=== PATIENT | female | born 1960 | race Caucasian/White ===

== ENCOUNTER 2021-06-09 01:29 | Inpatient (IN) | payer MEDICARE, SELFPAY ==
[2021-06-09] MEDS ORDERED: Calcium Carbonate 500 MG ChewTAB PO PRN (01:47)
[2021-06-09] MEDS ORDERED: Dextrose 5% in Water 1,000 ML IV PRN (01:47)
[2021-06-09] MEDS ORDERED: Acetaminophen 325 MG TAB PO PRN (01:47)
[2021-06-09] MEDS ORDERED: Dextrose 50% Abboject 50 ML SYRINGE SLOW IVP PRN (01:47)
[2021-06-09] MEDS ORDERED: Senokot S 8.6-50 MG TAB PO PRN (01:47)
[2021-06-09] MEDS ORDERED: HumaLOG 300 UNITS/3 ML VIAL SC PRN (01:47)
[2021-06-09] MEDS ORDERED: Ondansetron PF 4 MG/2 ML Vial IVP PRN (01:47)
[2021-06-09] MEDS ORDERED: Potassium Chloride 20 MEQ TAB PO SCH (02:00)
[2021-06-09] MEDS ORDERED: Ventolin HFA Inhaler 60 PUFF INHALER INH PRN (02:09)
[2021-06-09] MEDS ORDERED: Sodium Bicarb 50 MEQ/50 ML VIAL IVP SCH (02:30)
[2021-06-09 02:41] LABS: Actual Bicarbonate (HCO3v) 41 mEq/L (22-28); Base Excess 16.6 mEq/L (-2.0 to +3.0); Calcium, Ionized (venous) 0.99 mmol/L (1.16-1.32); Chloride (VBG) 93 mmol/L (98-106); Hemoglobin (Hb) 11.5 g/dL (11.7-16.0); Potassium (VBG) 2.88 mmol/L (3.70-5.30); Puncture Site Other Site; Sodium 135.6 mmol/L (133-146); pH (venous) 7.57 (7.32-7.43)
[2021-06-09 02:53] LABS: Hemoglobin 10.8 g/dL (12.0-15.5); Mean Corpuscular HGB CONC 31.7 g/dL (32.0-36.0); Mean Corpuscular Hemoglobin 25.2 pg (27.0-33.0); Mean Corpuscular Volume 79.7 fl (81.6-98.3); Platelet Count 180 10x3/uL (150-450); RBC Distribution Width 18.9 % (11.5-14.5); Red Blood Cell (RBC) Count 4.28 10x6/uL (3.90-5.03); White Blood Cell (WBC) Count 3.8 10x3/uL (3.5-10.5)
[2021-06-09 02:54] VITALS: BMI 39.6
[2021-06-09] MEDS ORDERED: Sodium Bicarbonate 150 MEQ in Dextrose 5% in Water 1,000 ML IV SCH (03:00)
[2021-06-09] MEDS ORDERED: Sodium Chloride 0.9% 1,000 ML IV SCH (03:15)
[2021-06-09 03:38] LABS: Anisocytosis SLIGHT = 6-15 cells (100X) (0-5/hpf); Band 12 % (5-11); Lymphocytes 18 % (21-51); Monocytes 14 % (0-10); Neutrophil 56 % (42-75)
[2021-06-09 03:39] LABS: Large Platelets SLIGHT; Microcytosis SLIGHT = 6-15 cells (100X) (0-5/hpf); Platelet Morphology Comment Appears Adequate
[2021-06-09 03:40] LABS: ALT (SGPT) 24 U/L (8-55); AST (SGOT) 36 U/L (5-34); Albumin 2.9 g/dL (3.4-4.8); Alkaline Phosphatase 96 U/L (40-110); Anion Gap 13 mmol/L (10-20); BUN (Urea Nitrogen) Less than 4 mg/dL (9.8-20.1); Bilirubin, Total 0.4 mg/dL (0.2-1.2); CRP (Inflammatory) 2.85 mg/dL (= or < 0.5); Calc. Creatinine Clearance 129 mL/min (70-130); Calcium 8.4 mg/dL (7.8-10.44); Carbon Dioxide 36 mmol/L (23-31); Chloride 93 mmol/L (98-107); Glucose 117 mg/dL (80-115); Magnesium 1.7 mg/dL (1.6-2.6); Protein, Total 5.9 g/dL (5.8-8.1); Sodium 139 mmol/L (136-145)
[2021-06-09 03:40] LABS: MDiff Complete? YES; Manual Diff?? YES
[2021-06-09 03:47] LABS: Actual Bicarbonate (HCO3v) 35 mEq/L (22-28); Base Excess 11.7 mEq/L (-2.0 to +3.0); Chloride (VBG) 93 mmol/L (98-106); Hemoglobin (Hb) 11.5 g/dL (11.7-16.0); Potassium (VBG) 2.53 mmol/L (3.70-5.30); Puncture Site Other Site; RapidComm Collect By Lab; Sodium 134.6 mmol/L (133-146); pH (venous) 7.54 (7.32-7.43)
[2021-06-09 03:53] LABS: Potassium 2.6 mmol/L (3.5-5.1)
[2021-06-09] MEDS: Potassium Chloride 20 MEQ TAB PO SCH ×2 (04:04→05:18)
[2021-06-09] MEDS: Potassium Chloride 10 MEQ in Premix Bag 1 BAG IVPB SCH ×2 (04:04→05:18)
[2021-06-09] MEDS: Cholecalciferol 1,000 UNITS (25 MCG) TAB PO SCH (08:00)
[2021-06-09] MEDS: Ascorbic Acid 500 mg Chewable Tablet PO SCH (08:00)
[2021-06-09] MEDS: metFORMIN 500 MG TAB PO SCH ×2 (08:00→18:10)
[2021-06-09] MEDS: Enoxaparin Sodium 40 MG/0.4 ML SYRINGE SC SCH (08:00)
[2021-06-09] MEDS: Aspirin 81 mg Enteric Coated Tablet PO SCH (08:00)
[2021-06-09] MEDS: Zinc Gluconate 50 MG TAB PO SCH (08:00)
[2021-06-09 08:21] LABS: Actual Bicarbonate (HCO3v) 32 mEq/L (22-28); Base Excess 6.5 mEq/L (-2.0 to +3.0); Calcium, Ionized (venous) 1.06 mmol/L (1.16-1.32); Chloride (VBG) 98 mmol/L (98-106); Hemoglobin (Hb) 12.1 g/dL (11.7-16.0); Potassium (VBG) 3.54 mmol/L (3.70-5.30); Puncture Site Other Site; RapidComm Collect By LAB; Sodium 137.8 mmol/L (133-146); pH (venous) 7.44 (7.32-7.43)
[2021-06-09 08:26] LABS: Anion Gap 13 mmol/L (10-20); BUN (Urea Nitrogen) Less than 4 mg/dL (9.8-20.1); Calc. Creatinine Clearance 129 mL/min (70-130); Calcium 8.6 mg/dL (7.8-10.44); Carbon Dioxide 32 mmol/L (23-31); Chloride 99 mmol/L (98-107); Glucose 113 mg/dL (80-115); Potassium 3.7 mmol/L (3.5-5.1); Sodium 140 mmol/L (136-145)
[2021-06-09] MEDS ORDERED: UBIQUINOL 200 MG PO SCH (09:00)
[2021-06-09] MEDS ORDERED: [UNRECOGNIZED DRUG - OTHER] PO SCH (09:00)
[2021-06-09] MEDS ORDERED: Famotidine/PF 20 mg/2ml Vial SLOW IVP SCH (09:00)
[2021-06-09] MEDS ORDERED: IRON FUM PS CMP PO SCH (09:00)
[2021-06-09] MEDS ORDERED: NIACIN PO SCH (09:00)
[2021-06-09] MEDS ORDERED: VIT C PO SCH (09:00)
[2021-06-09 11:28] LABS: Anion Gap 12 mmol/L (10-20); BUN (Urea Nitrogen) Less than 4 mg/dL (9.8-20.1); Calc. Creatinine Clearance 121 mL/min (70-130); Calcium 8.6 mg/dL (7.8-10.44); Carbon Dioxide 32 mmol/L (23-31); Chloride 100 mmol/L (98-107); Glucose 114 mg/dL (80-115); Potassium 3.6 mmol/L (3.5-5.1); Sodium 140 mmol/L (136-145)
[2021-06-09 15:08] LABS: Anion Gap 12 mmol/L (10-20); BUN (Urea Nitrogen) Less than 4 mg/dL (9.8-20.1); Calc. Creatinine Clearance 129 mL/min (70-130); Calcium 8.5 mg/dL (7.8-10.44); Carbon Dioxide 28 mmol/L (23-31); Chloride 103 mmol/L (98-107); Glucose 105 mg/dL (80-115); Potassium 3.3 mmol/L (3.5-5.1); Sodium 140 mmol/L (136-145)
[2021-06-09] MEDS: HYDROcodone/Acetaminophen 5/325 mg Tablet PO PRN (18:24)
[2021-06-09 19:26] LABS: Anion Gap 14 mmol/L (10-20); BUN (Urea Nitrogen) 4 mg/dL (9.8-20.1); Calc. Creatinine Clearance 127 mL/min (70-130); Calcium 8.9 mg/dL (7.8-10.44); Carbon Dioxide 28 mmol/L (23-31); Chloride 103 mmol/L (98-107); Glucose 101 mg/dL (80-115); Potassium 3.6 mmol/L (3.5-5.1); Sodium 141 mmol/L (136-145)
[2021-06-09] MEDS: Meloxicam 7.5 MG TAB PO SCH (21:22)
[2021-06-10] MEDS: metFORMIN 500 MG TAB PO SCH ×2 (07:55→17:20)
[2021-06-10] MEDS: Aspirin 81 mg Enteric Coated Tablet PO SCH (09:16)
[2021-06-10] MEDS: Zinc Gluconate 50 MG TAB PO SCH (09:16)
[2021-06-10] MEDS: Cholecalciferol 1,000 UNITS (25 MCG) TAB PO SCH (09:16)
[2021-06-10] MEDS: Ascorbic Acid 500 mg Chewable Tablet PO SCH (09:17)
[2021-06-10] MEDS: Enoxaparin Sodium 40 MG/0.4 ML SYRINGE SC SCH (09:17)
[2021-06-10 10:56] LABS: ALT (SGPT) 23 U/L (8-55); AST (SGOT) 34 U/L (5-34); Alkaline Phosphatase 101 U/L (40-110); Anion Gap 17 mmol/L (10-20); BUN (Urea Nitrogen) 5 mg/dL (9.8-20.1); Bilirubin, Total 0.5 mg/dL (0.2-1.2); CRP (Inflammatory) 2.37 mg/dL (= or < 0.5); Calc. Creatinine Clearance 125 mL/min (70-130); Carbon Dioxide 21 mmol/L (23-31); Chloride 105 mmol/L (98-107); Globulin 3.4 g/dL (2.4-3.5); Glucose 127 mg/dL (80-115); Potassium 3.4 mmol/L (3.5-5.1); Protein, Total 6.4 g/dL (5.8-8.1); Sodium 140 mmol/L (136-145)
[2021-06-10] MEDS: HYDROcodone/Acetaminophen 5/325 mg Tablet PO PRN (12:04)
[2021-06-10] MEDS ORDERED: HYDROcodone/Acetaminophen 10/325 mg Tablet PO SCH (17:30)
[2021-06-10] MEDS: Meloxicam 7.5 MG TAB PO SCH (20:47)
[2021-06-10] MEDS: hydrOXYzine 25 MG TAB PO SCH (20:47)
[2021-06-10] MEDS: Guaifenesin DM 100-10/5 ML UDCUP PO PRN (20:48)
[2021-06-11] MEDS: HYDROcodone/Acetaminophen 10/325 mg Tablet PO PRN (04:29)
[2021-06-11] MEDS: metFORMIN 500 MG TAB PO SCH ×2 (07:45→18:18)
[2021-06-11] MEDS: Cholecalciferol 1,000 UNITS (25 MCG) TAB PO SCH (09:18)
[2021-06-11] MEDS: Zinc Gluconate 50 MG TAB PO SCH (09:18)
[2021-06-11] MEDS: Ascorbic Acid 500 mg Chewable Tablet PO SCH (09:18)
[2021-06-11] MEDS: Enoxaparin Sodium 40 MG/0.4 ML SYRINGE SC SCH (09:19)
[2021-06-11] MEDS: Aspirin 81 mg Enteric Coated Tablet PO SCH (09:19)
[2021-06-11] MEDS: Morphine ER 15 MG TAB PO SCH (09:19)
[2021-06-11] MEDS: HYDROcodone/Acetaminophen 5/325 mg Tablet PO PRN (18:32)
[2021-06-11] MEDS: Meloxicam 7.5 MG TAB PO SCH (20:16)
[2021-06-11] MEDS: hydrOXYzine 25 MG TAB PO SCH (20:16)
[2021-06-11] MEDS: Guaifenesin DM 100-10/5 ML UDCUP PO PRN (20:17)
[2021-06-12] MEDS: HYDROcodone/Acetaminophen 10/325 mg Tablet PO PRN (00:15)
[2021-06-12 08:25] LABS: #Eosinphils 0.3 10x3/uL (0.0-0.5); #Monocytes 0.6 10x3/uL (0.0-1.1); #Neutrophils 2.1 10x3/uL (1.5-8.4); %Basophils 0.5 % (0.0-2.0); %Eosinophils 8.6 % (0.0-6.0); %Lymphocytes 20.2 % (18.0-47.0); %Monocytes 14.9 % (0.0-10.0); %Neutrophils 55.5 % (40.0-75.0); Hemoglobin 11.1 g/dL (12.0-15.5); Mean Corpuscular HGB CONC 30.5 g/dL (32.0-36.0); Mean Corpuscular Hemoglobin 25.5 pg (27.0-33.0); Mean Corpuscular Volume 83.5 fl (81.6-98.3); Mean Platelet Volume 9.2 fl (7.4-10.4); Platelet Count 189 10x3/uL (150-450); RBC Distribution Width 19.1 % (11.5-14.5); Red Blood Cell (RBC) Count 4.36 10x6/uL (3.90-5.03); White Blood Cell (WBC) Count 3.8 10x3/uL (3.5-10.5)
[2021-06-12 08:31] LABS: Anion Gap 11 mmol/L (10-20); BUN (Urea Nitrogen) 9 mg/dL (9.8-20.1); Calc. Creatinine Clearance 129 mL/min (70-130); Calcium 8.9 mg/dL (7.8-10.44); Carbon Dioxide 31 mmol/L (23-31); Chloride 102 mmol/L (98-107); Glucose 108 mg/dL (80-115); Potassium 3.5 mmol/L (3.5-5.1); Sodium 140 mmol/L (136-145)
[2021-06-12] MEDS: metFORMIN 500 MG TAB PO SCH (09:17)
[2021-06-12] MEDS: Cholecalciferol 1,000 UNITS (25 MCG) TAB PO SCH (09:46)
[2021-06-12] MEDS: Morphine ER 15 MG TAB PO SCH (09:46)
[2021-06-12] MEDS: Ascorbic Acid 500 mg Chewable Tablet PO SCH (09:46)
[2021-06-12] MEDS: Aspirin 81 mg Enteric Coated Tablet PO SCH (09:46)
[2021-06-12] MEDS: Enoxaparin Sodium 40 MG/0.4 ML SYRINGE SC SCH (09:46)
[2021-06-12] MEDS: Zinc Gluconate 50 MG TAB PO SCH (09:47)
[2021-06-12 16:24] VITALS: BP 90/70; TEMP 98.5
== END 2021-06-12 16:30 | disposition home or self-care (01) | DRG 917 ==
LOC: CSHIMCU 01:29 → CSHTELE 17:15
PROVIDERS: ADMIT Student in an Organized Health Care Education/Training Program; ATTEND Internal Medicine
PROC: 8E0ZXY6 Isolation (ICD-10-PCS; principal; 2021-06-09)
DX: T43.012A Poisoning by tricyclic antidepressants, intentional self-harm, initial encounter (principal); U07.1 COVID-19; R45.851 Suicidal ideations; A08.39 Other viral enteritis; E87.6 Hypokalemia; G89.4 Chronic pain syndrome; F41.9 Anxiety disorder, unspecified; F60.89 Other specific personality disorders; E11.40 Type 2 diabetes mellitus with diabetic neuropathy, unspecified; Z90.49 Acquired absence of other specified parts of digestive tract; Z90.710 Acquired absence of both cervix and uterus; Z98.84 Bariatric surgery status; J45.909 Unspecified asthma, uncomplicated; E11.65 Type 2 diabetes mellitus with hyperglycemia; D72.819 Decreased white blood cell count, unspecified; D72.810 Lymphocytopenia; F11.90 Opioid use, unspecified, uncomplicated; F31.9 Bipolar disorder, unspecified; E66.9 Obesity, unspecified; Z91.030 Bee allergy status; Z91.013 Allergy to seafood; Z79.899 Other long term (current) drug therapy; Z68.39 Body mass index [BMI] 39.0-39.9, adult
CPT/HCPCS: 36415; 36416; 71045; 80048; 80053; 82805; 83735; 85025; 85379; 86140; 87324; 87449; 93005; 93010; J1650; J2405; J3480